=== PATIENT | male | born 1985 | race Hispanic/Latino ===

== ENCOUNTER 2017-05-15 14:04 | Observation (INO) | payer BC ==
[~2017-05-15] VITALS: Ht 188 cm; Wt 98.9 kg
[2017-05-15 14:35] VITALS: BP 158/95; TEMP 98.1
[2017-05-15 16:44] LABS: PLATELET COUNT 326 K/uL (142-355)
[2017-05-15 16:46] LABS: POTASSIUM 4.5 mmol/L (3.6-5.2)
[2017-05-15 20:00] VITALS: BP 145/88; TEMP 97.7
[2017-05-15 20:10] VITALS: BP 149/93; TEMP 98.3; Ht 188 cm; Wt 98.9 kg
[2017-05-16] VITALS: BP 120/70; TEMP 97.6
[2017-05-16 04:00] VITALS: BP 129/71; TEMP 97.7
[2017-05-16 06:37] LABS: PLATELET COUNT 261 K/uL (142-355)
[2017-05-16 07:38] VITALS: BP 127/81; TEMP 98.1
[2017-05-16] MEDS ORDERED: PHEN200T3 PO (09:22)
[2017-05-16] MEDS ORDERED: KETO10TA34 PO (09:22)
[2017-05-16] MEDS ORDERED: TAMS0.4C PO (09:22)
[2017-05-16] MEDS ORDERED: CIPRO500 MG PO (09:22)
--- NOTE | 2017-05-16 09:46 | NUR ---
IV D/C'D. PT TO FU WITH DR. TAYLOR TODAY AT 3:40. MEDS CALLED IN TO PHARMACY. D/C PAPER WORK GIVEN. PT HAS NO FUTHER QUESTIONS. PT AMBULATED OUT AT THIS TIME. NO PROBLEMS NOTED.
== END 2017-05-16 09:46 | disposition home or self-care (01) ==
LOC: ED 14:04 → MED/SURG 17:10
PROVIDERS: ADMIT Emergency Medicine
DX: N13.1 Hydronephrosis with ureteral stricture, not elsewhere classified (principal)
CPT/HCPCS: 36415; 80048; 81000; 85027; 96360; 96367; 96374; 96375; 99220; 99284; G0378; J0744; J1885; J2270; J2405